=== PATIENT | female | born 1970 | race African-American/Black ===

== ENCOUNTER 2016-09-15 20:51 | Emergency (ER) | payer OTHER ==
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
[~2016-09-15 20:51] MED LIST: ALBUTEROL MININEB NEB; ALBUTEROL17 GM INH; AMOXICILLIN875 MG PO; CELEXA20 MG; CELEXA20 MG PO; INVEGA SUS39 MG/0.25 IM; IRON SUPPLEMENT1 TAB PO; NICOTINE TRANSD21 MG EXT; PREDNISONE PO; PROAIR HFA8.5 GM INH; PROMETHAZI6.25 MG/5 PO; PROVERA10 MG PO; VALTREX500 MG PO; [UNRECOGNIZED DRUG - OTHER] INH; [UNRECOGNIZED DRUG - REMARK]
== END 2016-09-15 23:15 | disposition home or self-care (01) ==
LOC: SED 20:51
DX: S46.912A Strain of unspecified muscle, fascia and tendon at shoulder and upper arm level, left arm, initial encounter (principal); S29.012A Strain of muscle and tendon of back wall of thorax, initial encounter; S40.022A Contusion of left upper arm, initial encounter; F17.210 Nicotine dependence, cigarettes, uncomplicated; Z88.0 Allergy status to penicillin; Z88.1 Allergy status to other antibiotic agents; J45.909 Unspecified asthma, uncomplicated; V49.40XA Driver injured in collision with unspecified motor vehicles in traffic accident, initial encounter; Y92.410 Unspecified street and highway as the place of occurrence of the external cause
CPT/HCPCS: 71020; 72072; 73030; 84703; 99283; 99284